=== PATIENT | male | born 2000 ===

== ENCOUNTER 2021-06-04 23:11 | Inpatient (IN) | payer OTHER ==
[~2021-06-04 23:11] MED LIST: Iopamidol 370 76% 100 ML VIAL ONE
[2021-06-04] MEDS ORDERED: Succinylcholine 200 MG/10 ml SYRINGE FS ONE (23:14)
[2021-06-04] MEDS ORDERED: Propofol 1,000 MG/100 ML VIAL IV ONE (23:27)
[2021-06-04 23:44] LABS: #Basophils 0.1 thou/uL (0.0-0.2); #Eosinphils 0.1 thou/uL (0.0-0.7); #Lymphocytes 5.3 thou/uL (1.20-3.40); #Monocytes 1.2 thou/uL (0.11-0.59); #Neutrophils 6.9 thou/uL (1.40-6.50); %Basophils 0.4 % (0.0-1.0); %Eosinophils 0.9 % (0.0-10.0); %Lymphocytes 39.2 % (28.0-48.0); %Monocytes 8.6 % (0.0-4.0); %Neutrophils 50.9 % (31.0-61.0); Hemoglobin 15.3 g/dL (14.0-18.0); Mean Corpuscular HGB CONC 33.9 g/dL (32.0-36.0); Mean Corpuscular Hemoglobin 30.6 pg (25.0-35.0); Mean Corpuscular Volume 90.4 fL (78.0-98.0); Mean Platelet Volume 8.1 fL (7.4-10.4); Platelet Count 263 thou/uL (130-400); RBC Distribution Width 11.8 % (11.5-14.5); Red Blood Cell (RBC) Count 4.99 mill/uL (4.00-5.20); White Blood Cell (WBC) Count 13.6 thou/uL (4.8-10.8)
[2021-06-04 23:53] LABS: INR-International Normal Ratio 1.1; Prothrombin Time 14.4 sec (12.0-14.7)
[2021-06-04] MEDS ORDERED: CEFAZOLIN 1 GM VIAL ONE (23:53)
[2021-06-04] MEDS ORDERED: Mannitol 12.5 GM/50 ML ONE ×2 (23:54→23:59)
[2021-06-04] MEDS ORDERED: Boostrix 0.5 ML (Tdap) VIAL ONE (23:54)
[2021-06-05] MEDS ORDERED: manNITOL 20% 500 ML ONE (00:02)
[2021-06-05] MEDS ORDERED: Midazolam HCl 2 mg/2 ml Vial ONE (00:04)
[2021-06-05 00:06] LABS: Actual Bicarbonate (HCO3a) 25.4 mEq/L (22-28); Analyzer IN Cardio ER; Base Excess (BEa) -0.4 mEq/L (-2.0 to +3.0); CO2 Tension 45.7 mmHg (35.0-45.0); Calcium, Ionized (arterial) 1.17 mmol/L (1.12-1.30); Carboxyhemoglobin (COHb) 0.3 gm% (0.0-3.0); Hemoglobin (Hb) 14.6 g/dL (11.4-15.4); O2 Tension (PaO2), arterial 464.8 mmHg (80.0-100.0); Potassium - ABG Lab 3.71 mmol/L (3.70-5.30); pH, Arterial 7.36 (7.35-7.45)
[2021-06-05] MEDS ORDERED: Thrombin 5000 UNITS/5 ML VIAL ONE (00:07)
[2021-06-05] MEDS ORDERED: Bacitracin Zinc Ointment 30 gm TUBE ONE (00:07)
[2021-06-05 00:09] LABS: ALT (SGPT) 24 U/L (8-55); AST (SGOT) 26 U/L (10-45); Albumin 4.6 g/dL (3.5-5.0); Alcohol Less than 10 mg/dL (Less than 10); Alkaline Phosphatase 52 U/L (50-130); Anion Gap 14 mmol/L (10-20); BUN (Urea Nitrogen) 24 mg/dL (8.4-21.0); Bilirubin, Total 0.6 mg/dL (0.2-1.2); Calc. Creatinine Clearance 0 mL/min (70-130); Calcium 9.5 mg/dL (7.8-10.44); Carbon Dioxide 26 mmol/L (22-29); Chloride 105 mmol/L (98-107); Globulin 3.1 g/dL (2.4-3.5); Glucose 160 mg/dL (70-105); Lipase 26 U/L (8-78); Potassium 3.4 mmol/L (3.5-5.1); Protein, Total 7.7 g/dL (6.0-8.3); Sodium 142 mmol/L (136-145)
[2021-06-05] MEDS ORDERED: Fentanyl 100 MCG/2 ML VIAL ONE ×2 (00:11→00:52)
[2021-06-05] MEDS ORDERED: manNITOL 20% 500 ML IVPB SCH (00:15)
[2021-06-05] MEDS ORDERED: PHENYLEPHRINE-NS 100 MCG/ML 10 ML SYRINGE ONE (00:35)
[2021-06-05] MEDS ORDERED: Rocuronium Bromide 10 MG/ML (10ML VIAL) ONE (00:35)
[2021-06-05 00:38] LABS: Amphetamine Not Detected (NotDetected); Bacteria/HPF None Seen HPF (None Seen); Barbiturates Screen Not Detected (NotDetected); Benzodiazepine Screen Not Detected (NotDetected); Bilirubin Negative (Negative); Blood, Urine 2+ (Negative); Clarity Clear (Clear); Cocaine Metabolite Screen Not Detected (NotDetected); Glucose, Urine (Dipstick) Normal (Negative); Ketone, Urine Negative (Negative); Leukocyte Negative Leu/uL (Negative); Methadone Not Detected (NotDetected); Methamphetamine Not Detected (NotDetected); Nitrite Negative (Negative); Opiate Screen Not Detected (NotDetected); Oxycodone Screen Not Detected (NotDetected); Phencyclidine (PCP) Not Detected (NotDetected); Protein, Urine (Dipstick) 30 mg/dL (Neg-Trace); Squamous Epithelial None Seen HPF (0-3); THC/Cannabinoid Screen Detected (NotDetected); Tricyclic Screen Not Detected (NotDetected); Urobilinogen Normal mg/dL (Less than 2); WBC/HPF 0-3 HPF (0-3)
[2021-06-05] MEDS ORDERED: Dextrose 50% Abboject 50 ML SYRINGE SLOW IVP PRN (00:40)
[2021-06-05] MEDS ORDERED: Dextrose 5% in Water 1,000 ML IV PRN (00:40)
[2021-06-05] MEDS ORDERED: hydrALAZINE 20 MG/ML VIAL SLOW IVP PRN (00:40)
[2021-06-05] MEDS ORDERED: Ondansetron PF 4 MG/2 ML Vial IVP PRN (00:40)
[2021-06-05 00:42] LABS: Specific Gravity, Urine 1.046 (1.002-1.036)
[2021-06-05] MEDS ORDERED: Ventilator Sedation Protocol 1 EACH FS ONE (00:45)
[2021-06-05] MEDS ORDERED: Acetaminophen 650 MG/20.3 ML UDCUP PO PRN (00:46)
[2021-06-05 00:56] LABS: ALV-art Gradient 191.075 mmHg (0-20); Puncture Site RBA
[2021-06-05] MEDS ORDERED: Propofol BOLUS 1,000 MG/100 ML VIAL IV PRN ×2 (01:00→07:45)
[2021-06-05] MEDS ORDERED: Lorazepam 2 MG/ML VIAL SLOW IVP PRN ×2 (01:00→07:45)
[2021-06-05] MEDS ORDERED: DISCONTINUE PREVIOUS NARCOTIC PAIN MEDICATIONS AND BENZODIAZEPINES FS SCH (01:00)
[2021-06-05] MEDS ORDERED: fentaNYL Citrate-0.9 % NaCl/PF 100 ML IV SCH (01:00)
[2021-06-05] MEDS ORDERED: Fentanyl BOLUS 250 ML IVPB PRN ×2 (01:00→07:45)
[2021-06-05] MEDS ORDERED: Propofol 1,000 MG/100 ML VIAL IV PRN ×2 (01:00→07:45)
[2021-06-05 02:32] LABS: Base Excess (BEa) -0.2 mEq/L (-2.0 to +3.0); CO2 Tension 37.6 mmHg (35.0-45.0); Calcium, Ionized (arterial) 1.17 mmol/L (1.12-1.30); Carboxyhemoglobin (COHb) 0.2 gm% (0.0-3.0); Hemoglobin (Hb) 15.1 g/dL (11.4-15.4); Potassium - ABG Lab 4.13 mmol/L (3.70-5.30); pH, Arterial 7.42 (7.35-7.45)
[2021-06-05 02:35] LABS: Puncture Site RBR
[2021-06-05 02:44] LABS: #Lymphocytes 1.2 thou/uL (1.20-3.40); #Monocytes 1.1 thou/uL (0.11-0.59); #Neutrophils 15.1 thou/uL (1.40-6.50); %Basophils 0.1 % (0.0-1.0); %Eosinophils 0.2 % (0.0-10.0); %Lymphocytes 6.8 % (28.0-48.0); %Neutrophils 86.9 % (31.0-61.0); Hemoglobin 14.7 g/dL (14.0-18.0); Mean Corpuscular HGB CONC 33.1 g/dL (32.0-36.0); Mean Corpuscular Hemoglobin 30.5 pg (25.0-35.0); Mean Corpuscular Volume 92.1 fL (78.0-98.0); Mean Platelet Volume 7.6 fL (7.4-10.4); Platelet Count 227 thou/uL (130-400); RBC Distribution Width 11.8 % (11.5-14.5); Red Blood Cell (RBC) Count 4.81 mill/uL (4.00-5.20); White Blood Cell (WBC) Count 17.4 thou/uL (4.8-10.8)
[2021-06-05 02:58] LABS: INR-International Normal Ratio 1.2; Prothrombin Time 14.9 sec (12.0-14.7)
[2021-06-05] MEDS: Sodium Chloride 0.9% 1,000 ML IV SCH ×3 (03:09→17:13)
[2021-06-05 03:12] LABS: Anion Gap 13 mmol/L (10-20); BUN (Urea Nitrogen) 22 mg/dL (8.4-21.0); Calc. Creatinine Clearance 133 mL/min (70-130); Calcium 9.2 mg/dL (7.8-10.44); Carbon Dioxide 25 mmol/L (22-29); Chloride 102 mmol/L (98-107); Glucose 120 mg/dL (70-105); Magnesium 1.9 mg/dL (1.7-2.2); Phosphorus 2.5 mg/dL (2.3-4.7); Potassium 4.2 mmol/L (3.5-5.1); Sodium 136 mmol/L (136-145)
[2021-06-05 03:24] LABS: SARS-CoV-2 NAA Rapid Test Not Detected (NotDetected)
[2021-06-05] MEDS: Morphine 4 MG/ML VIAL SLOW IVP PRN ×2 (04:42→06:23)
[2021-06-05] MEDS ORDERED: Ventilator Sedation Protocol 1 EACH FS SCH (07:30)
[2021-06-05] MEDS ORDERED: Magnesium 2 GM/50 ML 2 GM in Premix Bag 1 BAG IVPB SCH (07:30)
[2021-06-05] MEDS ORDERED: Morphine 4 MG/ML VIAL SLOW IVP PRN (07:45)
[2021-06-05] MEDS ORDERED: FLU VACC QS2021-22(6MOS UP)/PF 60 MCG/0.5 ML SYRINGE IM ONE (09:00)
[2021-06-05] MEDS ORDERED: Prevnar 13-Val Conj/PF 0.5 ML SYRINGE IM ONE (09:00)
[2021-06-05] MEDS: Acetaminophen 650 MG/20.3 ML UDCUP PO SCH ×3 (09:39→19:32)
[2021-06-05] MEDS: Famotidine/PF 20 mg/2ml Vial SLOW IVP SCH ×2 (09:39→20:02)
[2021-06-05] MEDS ORDERED: Sodium Chloride 0.9% 500 ML IV SCH ×2 (22:30→23:30)
[2021-06-06] MEDS: Acetaminophen 650 MG/20.3 ML UDCUP PO SCH ×4 (01:45→16:52)
[2021-06-06] MEDS: Sodium Chloride 0.9% 1,000 ML IV SCH ×2 (01:45→08:54)
[2021-06-06 06:33] LABS: Anion Gap 10 mmol/L (10-20); BUN (Urea Nitrogen) 16 mg/dL (8.4-21.0); Calc. Creatinine Clearance 188 mL/min (70-130); Calcium 8.6 mg/dL (7.8-10.44); Carbon Dioxide 21 mmol/L (22-29); Chloride 112 mmol/L (98-107); Glucose 148 mg/dL (70-105); Magnesium 2.2 mg/dL (1.7-2.2); Potassium 4.1 mmol/L (3.5-5.1); Sodium 139 mmol/L (136-145)
[2021-06-06 06:35] LABS: #Lymphocytes 0.9 thou/uL (1.20-3.40); #Monocytes 1.1 thou/uL (0.11-0.59); #Neutrophils 10.5 thou/uL (1.40-6.50); %Eosinophils 0.1 % (0.0-10.0); %Lymphocytes 7.2 % (28.0-48.0); %Monocytes 8.8 % (0.0-4.0); %Neutrophils 83.9 % (31.0-61.0); Hemoglobin 11.5 g/dL (14.0-18.0); Mean Corpuscular HGB CONC 32.1 g/dL (32.0-36.0); Mean Corpuscular Hemoglobin 30.7 pg (25.0-35.0); Mean Corpuscular Volume 95.5 fL (78.0-98.0); Mean Platelet Volume 8.2 fL (7.4-10.4); Platelet Count 139 thou/uL (130-400); RBC Distribution Width 11.8 % (11.5-14.5); Red Blood Cell (RBC) Count 3.76 mill/uL (4.00-5.20); White Blood Cell (WBC) Count 12.6 thou/uL (4.8-10.8)
[2021-06-06] MEDS ORDERED: Sodium Phosphate 30 MMOL in Sodium Chloride 0.9% 250 ML 250 ML IVPB SCH (07:45)
[2021-06-06] MEDS ORDERED: Piperacillin/Tazobactam 3.375 GM in Sodium Chloride 0.9% 100 ML IVPB SCH (07:45)
[2021-06-06] MEDS: Senokot S 8.6-50 MG TAB PER TUBE SCH ×2 (07:54→21:26)
[2021-06-06] MEDS: Polyethylene Glycol 3350 17 GM Packet PER TUBE SCH (07:54)
[2021-06-06] MEDS: Famotidine/PF 20 mg/2ml Vial SLOW IVP SCH ×2 (07:54→21:26)
[2021-06-06 08:07] LABS: Actual Bicarbonate (HCO3a) 22.7 mEq/L (22-28); Base Excess (BEa) -1.8 mEq/L (-2.0 to +3.0); CO2 Tension 37.9 mmHg (35.0-45.0); Carboxyhemoglobin (COHb) 0.3 gm% (0.0-3.0); Hemoglobin (Hb) 11.7 g/dL (11.4-15.4); O2 Tension (PaO2), arterial 200.2 mmHg (80.0-100.0); Potassium - ABG Lab 3.91 mmol/L (3.70-5.30)
[2021-06-06 08:13] LABS: ALV-art Gradient 108.925 mmHg (0-20); Puncture Site RRA
[2021-06-06] MEDS ORDERED: Acetaminophen/Codeine 30-300mg Tablet PO PRN ×2 (09:27)
[2021-06-06] MEDS ORDERED: Dexamethasone 10 MG in Sodium Chloride 0.9% 50 ML IVPB SCH (09:30)
[2021-06-06] MEDS: Dexamethasone 10 MG/ML VIAL SLOW IVP SCH ×2 (10:20→16:53)
[2021-06-06] MEDS: Morphine 4 MG/ML VIAL SLOW IVP PRN ×2 (10:55→16:28)
[2021-06-06] MEDS: Piperacillin/Tazobactam 3.375 GM in Sodium Chloride 0.9% 100 ML IVPB SCH ×2 (12:56→21:26)
[2021-06-06] MEDS: Amantadine HCl 100 mg Capsule PO SCH (21:26)
[2021-06-06] MEDS: Senokot S 8.6-50 MG TAB PO SCH (21:27)
[2021-06-07] MEDS: Acetaminophen 650 MG/20.3 ML UDCUP PO SCH ×5 (01:17→23:56)
[2021-06-07] MEDS: Dexamethasone 10 MG/ML VIAL SLOW IVP SCH (01:18)
[2021-06-07] MEDS: Morphine 4 MG/ML VIAL SLOW IVP PRN ×2 (01:31→08:05)
[2021-06-07] MEDS: Piperacillin/Tazobactam 3.375 GM in Sodium Chloride 0.9% 100 ML IVPB SCH ×3 (05:31→21:50)
[2021-06-07 08:17] LABS: Hemoglobin 12.5 g/dL (14.0-18.0); Mean Corpuscular HGB CONC 32.5 g/dL (32.0-36.0); Mean Corpuscular Hemoglobin 31.5 pg (25.0-35.0); Mean Corpuscular Volume 96.9 fL (78.0-98.0); Mean Platelet Volume 8.4 fL (7.4-10.4); Platelet Count 181 thou/uL (130-400); RBC Distribution Width 11.7 % (11.5-14.5); Red Blood Cell (RBC) Count 3.98 mill/uL (4.00-5.20); White Blood Cell (WBC) Count 23.3 thou/uL (4.8-10.8)
[2021-06-07 08:33] LABS: Band 24 % (5-11); Lymphocytes 2 % (28-48); MDiff Complete? YES; Monocytes 4 % (0-4); Neutrophil 70 % (31-61); Platelet Morphology Comment Appears Adequate; Polychromasia SLIGHT = 2-3 cells (100X) (0-2/hpf)
[2021-06-07 08:34] LABS: Anion Gap 17 mmol/L (10-20); BUN (Urea Nitrogen) 15 mg/dL (8.4-21.0); Calc. Creatinine Clearance 207 mL/min (70-130); Calcium 9.5 mg/dL (7.8-10.44); Carbon Dioxide 17 mmol/L (22-29); Chloride 107 mmol/L (98-107); Glucose 172 mg/dL (70-105); Magnesium 2.2 mg/dL (1.7-2.2); Potassium 4.3 mmol/L (3.5-5.1); Sodium 137 mmol/L (136-145)
[2021-06-07 08:38] LABS: Phosphorus 2.6 mg/dL (2.3-4.7)
[2021-06-07] MEDS: Polyethylene Glycol 3350 17 GM Packet PER TUBE SCH (08:47)
[2021-06-07] MEDS: Amantadine HCl 100 mg Capsule PO SCH ×2 (08:47→21:51)
[2021-06-07] MEDS: Famotidine/PF 20 mg/2ml Vial SLOW IVP SCH ×2 (08:47→21:51)
[2021-06-07] MEDS: Senokot S 8.6-50 MG TAB PER TUBE SCH (08:48)
[2021-06-07] MEDS: Senokot S 8.6-50 MG TAB PO SCH ×2 (08:48→21:51)
[2021-06-07] MEDS ORDERED: Sodium Phosphate 30 MMOL in Sodium Chloride 0.9% 250 ML 250 ML IVPB SCH (09:00)
[2021-06-07] MEDS ORDERED: Lidocaine Viscous Sol 2% 15 ml UD Cup SSW PRN ×2 (21:27→21:38)
[2021-06-07] MEDS: Acetaminophen/Codeine 30-300mg Tablet PO PRN (23:50)
[2021-06-08 04:23] LABS: #Lymphocytes 1.8 thou/uL (1.20-3.40); #Monocytes 1.1 thou/uL (0.11-0.59); #Neutrophils 11.4 thou/uL (1.40-6.50); %Basophils 0.1 % (0.0-1.0); %Eosinophils 0.3 % (0.0-10.0); %Lymphocytes 12.4 % (28.0-48.0); %Monocytes 7.6 % (0.0-4.0); %Neutrophils 79.7 % (31.0-61.0); Hemoglobin 12.7 g/dL (14.0-18.0); Mean Corpuscular HGB CONC 32.1 g/dL (32.0-36.0); Mean Corpuscular Hemoglobin 30.9 pg (25.0-35.0); Mean Corpuscular Volume 96.1 fL (78.0-98.0); Mean Platelet Volume 8.4 fL (7.4-10.4); Platelet Count 202 thou/uL (130-400); RBC Distribution Width 11.8 % (11.5-14.5); Red Blood Cell (RBC) Count 4.11 mill/uL (4.00-5.20); White Blood Cell (WBC) Count 14.3 thou/uL (4.8-10.8)
[2021-06-08 04:30] LABS: Anion Gap 6 mmol/L (10-20); BUN (Urea Nitrogen) 18 mg/dL (8.4-21.0); Calc. Creatinine Clearance 202 mL/min (70-130); Calcium 9.3 mg/dL (7.8-10.44); Carbon Dioxide 31 mmol/L (22-29); Chloride 107 mmol/L (98-107); Glucose 116 mg/dL (70-105); Magnesium 2.3 mg/dL (1.7-2.2); Phosphorus 2.9 mg/dL (2.3-4.7); Potassium 3.8 mmol/L (3.5-5.1); Sodium 140 mmol/L (136-145)
[2021-06-08] MEDS: Acetaminophen 650 MG/20.3 ML UDCUP PO SCH ×4 (05:14→23:34)
[2021-06-08] MEDS: Piperacillin/Tazobactam 3.375 GM in Sodium Chloride 0.9% 100 ML IVPB SCH ×3 (05:14→21:52)
[2021-06-08] MEDS: Polyethylene Glycol 3350 17 GM Packet PER TUBE SCH (07:17)
[2021-06-08] MEDS: Amantadine HCl 100 mg Capsule PO SCH ×2 (07:17→21:52)
[2021-06-08] MEDS: Famotidine/PF 20 mg/2ml Vial SLOW IVP SCH ×2 (07:17→21:52)
[2021-06-08] MEDS: Senokot S 8.6-50 MG TAB PO SCH ×2 (07:17→21:52)
[2021-06-08] MEDS ORDERED: Potassium Phosphate 15 MMOL in Sodium Chloride 0.9% 250 ML 250 ML IVPB SCH (09:00)
[2021-06-08] MEDS ORDERED: Morphine 4 MG/ML VIAL ONE (15:17)
[2021-06-08] MEDS ORDERED: Morphine 4 MG/ML VIAL SLOW IVP SCH ×2 (15:30→22:00)
[2021-06-08] MEDS: Acetaminophen/Codeine 30-300mg Tablet PO PRN (15:43)
[2021-06-09] MEDS: Acetaminophen 650 MG/20.3 ML UDCUP PO SCH (05:32)
[2021-06-09] MEDS: Piperacillin/Tazobactam 3.375 GM in Sodium Chloride 0.9% 100 ML IVPB SCH ×3 (05:33→21:48)
[2021-06-09 06:58] LABS: #Lymphocytes 1.4 thou/uL (1.20-3.40); #Monocytes 1.1 thou/uL (0.11-0.59); #Neutrophils 8.1 thou/uL (1.40-6.50); %Eosinophils 0.5 % (0.0-10.0); %Lymphocytes 12.8 % (28.0-48.0); %Monocytes 10.2 % (0.0-4.0); %Neutrophils 76.5 % (31.0-61.0); Hemoglobin 13.6 g/dL (14.0-18.0); Mean Corpuscular HGB CONC 32.8 g/dL (32.0-36.0); Mean Corpuscular Hemoglobin 31.1 pg (25.0-35.0); Mean Corpuscular Volume 94.7 fL (78.0-98.0); Mean Platelet Volume 7.9 fL (7.4-10.4); Platelet Count 235 thou/uL (130-400); RBC Distribution Width 11.8 % (11.5-14.5); Red Blood Cell (RBC) Count 4.39 mill/uL (4.00-5.20); White Blood Cell (WBC) Count 10.6 thou/uL (4.8-10.8)
[2021-06-09] MEDS ORDERED: Potassium Phosphate 15 MMOL in Sodium Chloride 0.9% 250 ML 250 ML IVPB SCH (07:45)
[2021-06-09] MEDS: Amantadine HCl 100 mg Capsule PO SCH ×2 (07:55→21:47)
[2021-06-09] MEDS: Famotidine/PF 20 mg/2ml Vial SLOW IVP SCH ×2 (07:55→21:48)
[2021-06-09] MEDS: Senokot S 8.6-50 MG TAB PO SCH ×2 (07:55→21:47)
[2021-06-09] MEDS: Polyethylene Glycol 3350 17 GM Packet PER TUBE SCH (07:56)
[2021-06-09] MEDS: Acetaminophen/Codeine 30-300mg Tablet PO SCH ×3 (11:08→21:47)
[2021-06-09 11:19] LABS: Anion Gap 16 mmol/L (10-20); BUN (Urea Nitrogen) 22 mg/dL (8.4-21.0); Calc. Creatinine Clearance 191 mL/min (70-130); Calcium 9.7 mg/dL (7.8-10.44); Carbon Dioxide 21 mmol/L (22-29); Chloride 104 mmol/L (98-107); Glucose 118 mg/dL (70-105); Magnesium 2.4 mg/dL (1.7-2.2); Phosphorus 3.8 mg/dL (2.3-4.7); Potassium 3.7 mmol/L (3.5-5.1); Sodium 137 mmol/L (136-145)
[2021-06-09] MEDS: Acetaminophen 325 MG/10.15 ML UDCUP PO SCH ×3 (13:13→23:59)
[2021-06-10 03:33] LABS: #Eosinphils 0.1 thou/uL (0.0-0.7); #Lymphocytes 1.7 thou/uL (1.20-3.40); #Monocytes 1.2 thou/uL (0.11-0.59); #Neutrophils 8.4 thou/uL (1.40-6.50); %Basophils 0.1 % (0.0-1.0); %Eosinophils 0.7 % (0.0-10.0); %Lymphocytes 14.9 % (28.0-48.0); %Monocytes 10.6 % (0.0-4.0); %Neutrophils 73.7 % (31.0-61.0); Hemoglobin 14.1 g/dL (14.0-18.0); Mean Corpuscular Hemoglobin 30.8 pg (25.0-35.0); Mean Corpuscular Volume 93.2 fL (78.0-98.0); Platelet Count 229 thou/uL (130-400); RBC Distribution Width 11.8 % (11.5-14.5); Red Blood Cell (RBC) Count 4.58 mill/uL (4.00-5.20); White Blood Cell (WBC) Count 11.3 thou/uL (4.8-10.8)
[2021-06-10 03:45] LABS: Anion Gap 14 mmol/L (10-20); BUN (Urea Nitrogen) 18 mg/dL (8.4-21.0); Calc. Creatinine Clearance 179 mL/min (70-130); Calcium 10.2 mg/dL (7.8-10.44); Carbon Dioxide 24 mmol/L (22-29); Chloride 100 mmol/L (98-107); Glucose 108 mg/dL (70-105); Magnesium 2.3 mg/dL (1.7-2.2); Sodium 134 mmol/L (136-145)
[2021-06-10] MEDS: Acetaminophen 325 MG/10.15 ML UDCUP PO SCH ×3 (05:09→17:16)
[2021-06-10] MEDS: Acetaminophen/Codeine 30-300mg Tablet PO SCH ×4 (05:10→21:45)
[2021-06-10] MEDS: Piperacillin/Tazobactam 3.375 GM in Sodium Chloride 0.9% 100 ML IVPB SCH ×3 (05:11→21:31)
[2021-06-10] MEDS: Polyethylene Glycol 3350 17 GM Packet PER TUBE SCH (08:20)
[2021-06-10] MEDS: Famotidine/PF 20 mg/2ml Vial SLOW IVP SCH (08:20)
[2021-06-10] MEDS: Amantadine HCl 100 mg Capsule PO SCH ×2 (08:21→20:32)
[2021-06-10] MEDS: Senokot S 8.6-50 MG TAB PO SCH ×2 (08:21→20:31)
[2021-06-10] MEDS: Famotidine 20 MG TAB PO SCH ×2 (08:41→20:31)
[2021-06-10] MEDS: Saccharomyces boulardii 250 MG CAP PO SCH (08:44)
[2021-06-10] MEDS: Sodium Chloride 1 GM TAB PO SCH ×2 (08:44→21:33)
[2021-06-10] MEDS: cloNIDine 0.1 MG TAB PO SCH ×2 (16:09→20:32)
[2021-06-11] MEDS: Acetaminophen 325 MG/10.15 ML UDCUP PO SCH ×6 (00:29→22:49)
[2021-06-11] MEDS: cloNIDine 0.1 MG TAB PO SCH ×4 (02:04→21:00)
[2021-06-11] MEDS: Acetaminophen/Codeine 30-300mg Tablet PO SCH ×4 (05:06→22:52)
[2021-06-11] MEDS: Piperacillin/Tazobactam 3.375 GM in Sodium Chloride 0.9% 100 ML IVPB SCH (05:08)
[2021-06-11] MEDS ORDERED: Lidocaine 1% (PF) 30 ML VIAL ONE (06:14)
[2021-06-11] MEDS: Famotidine 20 MG TAB PO SCH ×2 (09:31→21:07)
[2021-06-11] MEDS: Amantadine HCl 100 mg Capsule PO SCH ×2 (09:31→21:07)
[2021-06-11] MEDS: Saccharomyces boulardii 250 MG CAP PO SCH (09:32)
[2021-06-11] MEDS: Polyethylene Glycol 3350 17 GM Packet PER TUBE SCH (09:32)
[2021-06-11] MEDS: Sodium Chloride 1 GM TAB PO SCH ×2 (09:32→21:19)
[2021-06-11] MEDS: Senokot S 8.6-50 MG TAB PO SCH ×2 (09:33→21:15)
[2021-06-11 13:36] VITALS: BMI 26.6
[2021-06-11] MEDS ORDERED: Bisacodyl 10 MG SUPP PR SCH (17:15)
[2021-06-11 17:56] LABS: SARS-CoV-2 PCR by NAA Not Detected (NotDetected)
[2021-06-12] MEDS: cloNIDine 0.1 MG TAB PO SCH ×3 (02:02→13:36)
[2021-06-12] MEDS: Acetaminophen/Codeine 30-300mg Tablet PO SCH ×4 (04:19→22:23)
[2021-06-12] MEDS: Acetaminophen 325 MG/10.15 ML UDCUP PO SCH ×4 (06:21→23:12)
[2021-06-12] MEDS: Senokot S 8.6-50 MG TAB PO SCH ×2 (08:58→20:02)
[2021-06-12] MEDS: Famotidine 20 MG TAB PO SCH ×2 (08:58→20:03)
[2021-06-12] MEDS: Sodium Chloride 1 GM TAB PO SCH ×2 (08:59→20:06)
[2021-06-12] MEDS: Amantadine HCl 100 mg Capsule PO SCH ×2 (08:59→20:02)
[2021-06-12] MEDS: Polyethylene Glycol 3350 17 GM Packet PER TUBE SCH (08:59)
[2021-06-12] MEDS: Saccharomyces boulardii 250 MG CAP PO SCH (08:59)
[2021-06-12] MEDS ORDERED: Lidocaine 1% (PF) 30 ML VIAL ONE ×2 (11:51→12:11)
[2021-06-12] MEDS ORDERED: Lidocaine 1% w/Epinephrine 1:100K 30 ML VIAL NERVE BLCK SCH (12:00)
[2021-06-12] MEDS ORDERED: Lidocaine 1% w/Epinephrine 1:100K 20 ML VIAL NERVE BLCK SCH (12:00)
[2021-06-12] MEDS ORDERED: CEFAZOLIN 2 GM, Admixture Fee 1 EACH in Sodium Chloride 0.9% 100 ML IVPB SCH (13:30)
[2021-06-12] MEDS: Bacitracin 1 PK TOP SCH ×2 (15:59→20:03)
[2021-06-12] MEDS ORDERED: Melatonin 3 MG TAB PO SCH (21:00)
[2021-06-13 00:37] VITALS: BP 131/66
[2021-06-13] MEDS: cloNIDine 0.1 MG TAB PO SCH (00:37)
[2021-06-13] MEDS: Acetaminophen/Codeine 30-300mg Tablet PO SCH (04:17)
[2021-06-13] MEDS: Acetaminophen 325 MG/10.15 ML UDCUP PO SCH (06:21)
[2021-06-13 08:45] VITALS: TEMP 98.8
[2021-06-13] MEDS: Polyethylene Glycol 3350 17 GM Packet PER TUBE SCH (09:44)
[2021-06-13] MEDS: Sodium Chloride 1 GM TAB PO SCH (09:44)
[2021-06-13] MEDS: Senokot S 8.6-50 MG TAB PO SCH (09:44)
[2021-06-13] MEDS: Amantadine HCl 100 mg Capsule PO SCH (09:44)
[2021-06-13] MEDS: Famotidine 20 MG TAB PO SCH (09:44)
[2021-06-13] MEDS: Saccharomyces boulardii 250 MG CAP PO SCH (09:44)
[2021-06-13] MEDS: Bacitracin 1 PK TOP SCH (09:45)
[2021-06-13] MEDS ORDERED: Morphine 4 MG/ML VIAL SLOW IVP SCH ×2 (10:03→10:05)
[2021-06-13] MEDS ORDERED: Morphine 4 MG/ML VIAL ONE (10:04)
== END 2021-06-13 10:30 | DRG 25 ==
LOC: ERS 23:11 → SDC/OP 06-05 00:26 → CCU 06-05 02:00
PROVIDERS: ADMIT Surgery; ATTEND Surgery
PROC: 00C40ZZ Extirpation of Matter from Intracranial Subdural Space, Open Approach (ICD-10-PCS; principal; 2021-06-05)
PROC: 0HQ0XZZ Repair Scalp Skin, External Approach (ICD-10-PCS; 2021-06-05)
PROC: 0BH17EZ Insertion of Endotracheal Airway into Trachea, Via Natural or Artificial Opening (ICD-10-PCS; 2021-06-05)
PROC: 5A1945Z Respiratory Ventilation, 24-96 Consecutive Hours (ICD-10-PCS; 2021-06-05)
PROC: 0D9670Z Drainage of Stomach with Drainage Device, Via Natural or Artificial Opening (ICD-10-PCS; 2021-06-05)
PROC: 3E0G76Z Introduction of Nutritional Substance into Upper GI, Via Natural or Artificial Opening (ICD-10-PCS; 2021-06-10)
PROC: 00Q Central Nervous System and Cranial Nerves, Repair (ICD-10-PCS; 2021-06-12)
DX: S06.5X9A Traumatic subdural hemorrhage with loss of consciousness of unspecified duration, initial encounter (principal); J96.00 Acute respiratory failure, unspecified whether with hypoxia or hypercapnia; S06.A1XA Traumatic brain compression with herniation, initial encounter; J69.0 Pneumonitis due to inhalation of food and vomit; E87.1 Hypo-osmolality and hyponatremia; G96.08 Other cranial cerebrospinal fluid leak; N17.9 Acute kidney failure, unspecified; Z20.822 Contact with and (suspected) exposure to COVID-19; Z23 Encounter for immunization; S06.1X9A Traumatic cerebral edema with loss of consciousness of unspecified duration, initial encounter; S01.01XA Laceration without foreign body of scalp, initial encounter; S30.810A Abrasion of lower back and pelvis, initial encounter; R40.2312 Coma scale, best motor response, none, at arrival to emergency department; R40.2112 Coma scale, eyes open, never, at arrival to emergency department; R40.2212 Coma scale, best verbal response, none, at arrival to emergency department; E83.42 Hypomagnesemia; Y83.8 Other surgical procedures as the cause of abnormal reaction of the patient, or of later complication, without mention of misadventure at the time of the procedure; E83.39 Other disorders of phosphorus metabolism; Z79.899 Other long term (current) drug therapy; V00.131A Fall from skateboard, initial encounter; Z78.1 Physical restraint status; Y92.89 Other specified places as the place of occurrence of the external cause; G47.00 Insomnia, unspecified; Y93.51 Activity, roller skating (inline) and skateboarding; E87.6 Hypokalemia
CPT/HCPCS: 31500; 36415; 36416; 36600; 51702; 70450; 70498; 71045; 71260; 72125; 72170; 74018; 74177; 80048; 80053; 80306; 80307; 81003; 81015; 82533; 82805; 83605; 83690; 83735; 84100; 85025; 85610; 85730; 87040; 87086; 90471; 90715; 93970; 94002; 94003; 96365; 96375; G0390; J0690; J1100; J2001; J2150; J2250; J2270; J2405; J2543; J2704; J3010; J3475; J3490; J7030; J7050; J7799; P9045; Q4107; Q9967; S0028; U0002; U0003; U0005